=== PATIENT | male | born 1960 | race Caucasian/White ===

== ENCOUNTER 2023-12-26 05:30 | Day surgery (SDC) | payer OTHER ==
[~2023-12-26 05:30] MED LIST: [UNRECOGNIZED DRUG - OTHER]
[2023-12-26] MEDS ORDERED: CEFTRIAXONE SODIUM 2,000 MG VIAL ONE (07:02)
[2023-12-26] MEDS ORDERED: ENOXAPARIN SODIUM 40 MG/0.4 ML SYRINGE SUBCUTANEO ONE ×2 (07:02→08:15)
[2023-12-26] MEDS ORDERED: BUPIVACAINE HCL/MPF 0.5% 30ML VIAL ONE (07:02)
[2023-12-26] MEDS ORDERED: METRONIDAZOLE/SODIUM CHLORIDE 500 MG/100 ML PIGGYBACK IV ONE ×2 (07:03→08:15)
[2023-12-26] MEDS ORDERED: BUPIVACAINE LIPOSOME/PF 266 MG/20 ML VIAL IJ ONE ×2 (07:40→08:15)
[2023-12-26] MEDS ORDERED: BUPIVACAINE HCL/PF 0.25% 30ML VIAL InF ONE (08:15)
[2023-12-26] MEDS ORDERED: CEFTRIAXONE SODIUM 2,000 MG VIAL IV ONE (08:15)
[2023-12-26] MEDS ORDERED: CELEBREX200MG PO (09:23)
[2023-12-26] MEDS ORDERED: NEURONTIN300 MG PO (09:23)
[2023-12-26] MEDS ORDERED: PERCOCET 5-3251 EACH PO (09:24)
[2023-12-26] MEDS ORDERED: POLY119PG PO (09:24)
== END 2023-12-26 14:05 | disposition home or self-care (01) ==
LOC: CIR.AMB 05:30
PROVIDERS: ATTEND Surgery
DX: K40.90 Unilateral inguinal hernia, without obstruction or gangrene, not specified as recurrent (principal); H52.10 Myopia, unspecified eye; H93.19 Tinnitus, unspecified ear; Z91.013 Allergy to seafood
CPT/HCPCS: 49650; C1781